=== PATIENT | male | born 1955 | race Caucasian/White ===

== ENCOUNTER 2017-10-05 12:36 | Outpatient (CLI) | payer OTHER ==
--- NOTE | 2017-10-05 13:17 | RAD ---
PA AND LATERAL CHEST: HISTORY: A 61-year-old male with a history of dyspnea. COMPARISON: 08/09/2016 FINDINGS: Heart size is within normal limits. Lungs are clear. No pneumonia, edema, or pleural effusion. IMPRESSION: No acute intrathoracic disease. Stable from prior study. POS: [facility]
== END 2017-10-05 12:37 | disposition home or self-care (01) ==
LOC: RAD 12:36
PROVIDERS: ATTEND Family Medicine
DX: R06.00 Dyspnea, unspecified (principal)
CPT/HCPCS: 71046